=== PATIENT | male | born 1985 | race Caucasian/White ===

== ENCOUNTER 2018-11-23 18:58 | Emergency (ER) | payer MEDICAID ==
[~2018-11-23] VITALS: Ht 180.3 cm; Wt 77.1 kg
[2018-11-23] MEDS ORDERED: ONDANSETRON HCL 4MG/2ML INJ IV ONE (20:15)
[2018-11-23] MEDS ORDERED: SODIUM CHLORIDE 0.9% 1,000 ML IV ONE (20:15)
[2018-11-23 21:38] LABS: HEMATOCRIT. 43.8 % (42.0-52.0); HEMOGLOBIN. 15.2 g/dL (14.0-18.0); MEAN CORPUSCULAR HEMOGLOBIN 32.7 pg (28.0-32.0); MEAN CORPUSCULAR VOLUME 94.3 fL (80.0-94.0); MEAN PLATELET VOLUME 8.3 fl (7.4-10.4); PLATELET 186 x1000/uL (130-400); RED BLOOD CELL COUNT 4.65 mill/uL (4.7-6.1); RED CELL DISTRIBUTION WIDTH 13.7 % (11.6-14.6)
[2018-11-23 21:43] LABS: CHLORIDE 99 mEq/L (98-107)
[2018-11-23 21:49] LABS: ETHANOL BLOOD < 10 mg/dL
[2018-11-23 22:18] LABS: PLATELET ESTIMATE NORMAL
[2018-11-23 22:22] VITALS: BP 125/80
[2018-11-23 22:24] LABS: CLARITY URINE CLEAR (CLEAR); COLOR URINE DARK YELLOW (YELLOW); KETONES URINE 3+ (NEGATIVE); LEUKOCYTE ESTERASE URINE TRACE (NEGATIVE); NITRITE URINE NEGATIVE (NEGATIVE); OCCULT BLOOD URINE NEGATIVE (NEGATIVE); PH URINE >=9.0 (4.5-8.0); PROTEIN URINE 3+ (NEGATIVE); SPECIFIC GRAVITY URINE 1.033 (1.005-1.030)
[2018-11-23] MEDS ORDERED: ONDANSETRON HCL 4MG TABLET PO ONE (22:30)
[2018-11-23 22:33] LABS: *BARBITURATES SCREEN URINE NEGATIVE (NEGATIVE)
[2018-11-23 22:34] LABS: *AMPHETAMINES SCREEN URINE NEGATIVE (NEGATIVE); *BENZODIAZEPINES SCREEN URINE NEGATIVE (NEGATIVE); *COCAINE SCREEN URINE NEGATIVE (NEGATIVE); CANNABINOID URINE SCREEN PRESUMTIVE POSITIVE (NEGATIVE); METHADONE URINE SCREEN NEGATIVE (NEGATIVE); OPIATES URINE SCREEN NEGATIVE (NEGATIVE); PHENCYCLIDINE URINE SCREEN NEGATIVE (NEGATIVE)
== END 2018-11-23 22:30 | disposition home or self-care (01) ==
LOC: ER 18:58
DX: R41.0 Disorientation, unspecified (principal); F17.200 Nicotine dependence, unspecified, uncomplicated; Z86.73 Personal history of transient ischemic attack (TIA), and cerebral infarction without residual deficits
CPT/HCPCS: 36415; 70450; 80053; 80305; 80320; 81003; 82962; 85025; 96361; 96374; 99284; J2405; J7030; Q0162; Z7610; G0480